=== PATIENT | male | born 1995 | race Caucasian/White ===

== ENCOUNTER 2021-03-02 10:16 | Emergency (ER) | payer OTHER, SELFPAY ==
--- NOTE | 2021-03-02 10:27 | ED.EAR ---
HPI - Ear Problem General Chief complaint: Ear Stated complaint: Lt ear pain Time Seen by Provider: 03/02/21 10:28 Source: patient and RN notes reviewed Mode of arrival: ambulatory Limitations: no limitations History of Present Illness HPI Narrative: 25-year-old male presents to the [facility] with complaints of left ear pain for the last 3-4 days. Also C/O occasional vertigo symptoms. Patient states that every once in a while when he is walking he feels that he is a little off balance. Denies any headache, blurry vision, change in vision. No chest pain, abdominal pain. 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 History of allergies, seasonal. History of multiple ear infections MD Complaint: ear pain Location: left ear Related Data Allergies Allergy/AdvReac Type Severity Reaction Status Date / Time SHELLFISH Allergy Unknown SWELLING-CARRIES Uncoded 05/25/14 19:06 EPIPEN Review of Systems Review of Systems: All systems reviewed & are unremarkable except as noted in HPI and below Constitutional: Constitutional: Reports no additional constitutional complaints, Denies chills and Denies fever(s) Eyes: Eyes: Reports no additional eye complaints, Denies change in vision and Denies photophobia ENT: Reports as per HPI and Reports vertigo Comments: Left ear pain Cardiovascular: Cardiovascular: Reports no additional cardiovascular complaints and Denies chest pain Respiratory: Respiratory: Reports no additional respiratory complaints, Denies cough and Denies dyspnea Gastrointestinal: Gastrointestinal: Reports as per HPI, Denies abdominal pain, Reports nausea and Reports vomiting Musculoskeletal: Musculoskeletal: Reports no additional musculoskeletal complaints Integumentary/Breasts: Skin/Breast: Reports system reviewed and no additional complaints, except as docu, Denies erythema and Denies rash Neurologic: Reports system reviewed and no additional complaints, except as documented and Denies headache(s) Psychiatric: Psychiatric: Reports no additional psychiatric complaints Allergic/Immunologic: Allergic/Immunologic: Reports no additional allergic/immunologic complaints, Denies lip swelling, Denies throat swelling, Denies tongue swelling and Denies wheezing PMFSH Family History Family History Other Diabetes mellitus Hypertension Social History Social History Smoking status: Never smoker Alcohol intake: never Comments At the time of my signature, I reviewed and agree with the nursing past medical, surgical, social, and family history. There is no relevant family history pertinent to the patient complaint. Exam Const: General: healthy appearing, no acute distress and alert Nutritional Appearance: well nourished Orientation/consciousness: patient oriented x3 Limitations: no limitations HENMT: Head: atraumatic Ears: hearing grossly normal bilaterally, EAC's normal, external ear abnormal other (Abnormal auricular, cauliflower ear bilaterally); no auricular hematomas, no periauricular adenopathy and TM abnormal erythematous on the left and with fluid behind the TM on the right General nose exam: Normal external nose present and Abnormal mucous membranes and turbinates present boggy bilateral and diffuse and erythematous bilateral Face and sinus: normal facial exam Mouth: Yes Normal oral and palatal mucosa present Throat: posterior oropharynx normal Eyes: Conjunctivae: conjunctivae normal Pupils: Equal, round and reactive pupils present Neck: Neck: normal visual inspection, no lymphadenopathy and no meningeal signs Chest: Chest palpation & inspection: normal inspection of the chest Resp: Effort & Inspection: normal respiratory effort and no use of accessory muscles Auscultation: clear to auscultation bilaterally, no crackles, no rales, no rhonchi and no whee
[2021-03-02 10:28] VITALS: BP 137/81; PULSE 57; RESP 18; TEMP 36.9; O2SAT 98
== END 2021-03-02 10:40 | disposition home or self-care (01) ==
PROVIDERS: Emergency Provider Nurse Practitioner; PCP Family Medicine
DX: R42 Dizziness and giddiness (principal); H66.005 Acute suppurative otitis media without spontaneous rupture of ear drum, recurrent, left ear; J01.10 Acute frontal sinusitis, unspecified
CPT/HCPCS: 99213; G0463